=== PATIENT | male | born 1970 | race Hispanic/Latino ===

== ENCOUNTER 2018-11-13 08:55 | Emergency (ER) | payer OTHER, MEDICAID, SELFPAY ==
[2018-11-13 09:06] VITALS: BP 161/103; PULSE 81; RESP 19; TEMP 36.6; O2SAT 100; BMI 25.0
--- NOTE | 2018-11-13 09:35 | DI.RAD.S_ITS ---
PROCEDURE: XR FOREARM RT 2V INDICATIONS: pain, previous surgery TECHNIQUE: 2 views of the forearm were acquired. COMPARISON: [facility], , FOREARM RIGHT, 04/09/2008, 13:41. FINDINGS: Bones: No acute fracture or dislocation is identified involving the osseous structures of the right forearm. No suspicious osseous lesions are present. Postoperative changes are noted related to previous open reduction and internal fixation procedures involving the mid radial and ulnar shafts. Orthopedic plates and screws are evident, which are intact. The fractures are healed. Degenerative changes of the elbow are present. There is slight deformity involving the radial head, which is felt to be degenerative. Soft tissues: Dystrophic calcification within the soft tissues of the left forearm are evident. Otherwise, the overlying soft tissues are unremarkable. IMPRESSION: 1. No acute osseous abnormality of the right forearm. 2. Healed radius and ulna fractures, status post ORIF. Dictated by: Alonso Adams M.D. on 11/13/2018 at 8:50 Approved by: Alonso Adams M.D. on 11/13/2018 at 8:52
--- NOTE | 2018-11-13 09:56 | ED.EXTPRO ---
HPI - Extremity Problem General Chief complaint: Extremity Problem,Nontraumatic Stated complaint: r arm pain Time Seen by Provider: 11/13/18 09:28 Source: patient Mode of arrival: ambulatory Limitations: no limitations History of Present Illness HPI Narrative: patient is a 48-year-old male who presents with right forearm pain. He previously had an open comminuted fracture back in 1989 with surgery. 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 He started noticing pain in his forearm and numbness and tingling in his middle and index finger over the last couple of days. He has been taking Tylenol for without any relief. His he has pain with supination and pronation. Some medial epicondyle pain as well. His denies any injury. Patient is ambidextrous. He states that he probably does use his right his arm and hand more at work. He remembers pain starting while watching TV on Tuesday. MD Complaint: extremity pain Quality: burning Exacerbating factors: range of motion Related Data Previous Rx's Medication Instructions Recorded prednisone 20 mg PO DAILY #5 tab 11/13/18 Allergies Allergy/AdvReac Type Severity Reaction Status Date / Time naproxen Allergy Verified 11/13/18 09:13 Review of Systems Review of Systems ROS Unobtainable: All systems reviewed & are unremarkable except as noted in HPI and below Constitutional Denies chills, Denies fever(s), Denies lethargy and Denies weakness Cardiovascular Denies chest pain, Denies irregular heart rhythm, Denies lightheadedness, Denies palpitations, Denies dyspnea, Denies dyspnea on exertion and Denies orthopnea Respiratory Denies cough, Denies dyspnea, Denies dyspnea on exertion and Denies wheezing Gastrointestinal Gastrointestinal: Denies abdominal pain, Denies change in bowel habits, Denies diarrhea, Denies nausea and Denies vomiting Musculoskeletal Reports as per HPI Integumentary/Breasts Denies pruritus, Denies erythema, Denies rash and Denies wounds Neurologic Denies weakness Endocrine Denies palpitations Allergic/Immunologic Denies wheezing FOR[facility]LY [facility] Medical History Diabetes (Acute) Social History Smoking Status: Former smoker Social History Smoking Status: Former smoker Exam Initial Vital Signs Initial Vital Signs: Vital Signs Temperature 97.8 F 11/13/18 09:06 Pulse Rate 81 11/13/18 09:06 Respiratory Rate 19 11/13/18 09:06 Blood Pressure 161/103 H 11/13/18 09:06 Pulse Oximetry 100 11/13/18 09:06 GENERAL: Well-appearing, well-nourished and in no acute distress. CARDIOVASCULAR: peripheral pulses in tact, cap refill <2 sec RESPIRATORY: No respiratory distress, speaks in full sentences without difficulty EXTREMITIES: Normal range of motion, no clubbing or edema. Neurovascularly intact right upper extremity: Pain medial epicondyle pain with supination and rotation. Scar scarring noted on the right forearm no erythema no swelling no contusion. Able to flex and extend the elbow. Distal radial pulse intact. Telephone Quotation Clerk strength equal bilaterally. NEUROLOGICAL: Cranial nerves II through XII grossly intact. Normal gait and speech. SKIN: Warm, dry, no petechiae, no rashes or lesions. Course Orders Ordered: ED Orders 11/13/18 09:35 XR forearm RT 2V Stat Vital Signs - 8 hr 11/13/18 09:06 Temperature 97.8 F Pulse Rate 81 Respiratory Rate 19 Blood Pressure 161/103 H Pulse Oximetry 100 MDM - Extremity (Nontraumatic) Imaging Data right forearm: Radiologist's impression: PROCEDURE: XR FOREARM RT 2V INDICATIONS: pain, previous surgery TECHNIQUE: 2 views of the forearm were acquired. COMPARISON: [facility], FOREARM RIGHT, 04/09/2008, 13:41. FINDINGS: Bones: No acute fracture or dislocation is identified involving the osseous structures of the right forearm. No suspicious osseous lesions are present. Postoperative changes are noted related to previous open reduction and internal fixation procedures involving the mid radial and ulnar shafts. Orthopedic plates and screws are evident, which are intact. The fractures are healed. Degenerative changes of the elbow are present. There is slight deformity involving the radial head, which is felt to be degenerative. Soft tissues: Dystrophic calcification within the soft tissues of the left forearm are evident. Otherwise, the overlying soft tissues are unremarkable. IMPRESSION: 1. No acute osseous abnormality of the right forearm. 2. Healed radius and ulna fractures, status post ORIF. Dictated by: Alonso Adams M.D. on 11/13/2018 at 8:50 Discharge Plan Departure Patient Disposition: Home Clinical Impression: Medial epicondyle apophysitis of right elbow due to overuse Discharge Date/Time: 11/13/18 10:17 Interventions: ED Discharge Assessment Last Done: 11/13/18 10:16 Instructions: DI for Medial Epicondylitis Activity Restrictions/Additional Instructions: *You have been diagnosed with Right medial epicondylitis *What to do: rest, decreased activity, may wear a wrist splint as needed to help *Continue to take medications as directed prednisone 20 mg once a day for 5 days to help with inflammation--> this will increase her glucose levels any will need to adjust her insulin as as you see fit. Tylenol 650 mg every 4-6 hours if needed for pain *Follow up with your primary care provider in 2-3 days *Return to ER if you should have numbness tingling weakness orany new, worsening or concerning symptoms Prescriptions: New prednisone 20 mg tablet 20 mg PO DAILY Qty: 5 RF: 0
[2018-11-13 10:11] VITALS: BP 152/96; PULSE 75; RESP 18; TEMP 36.7; O2SAT 98
== END 2018-11-13 10:17 | disposition home or self-care (01) ==
PROVIDERS: Emergency Provider Emergency Medicine
DX: M93.921 Osteochondropathy, unspecified, right upper arm (principal)
CPT/HCPCS: 73090; 99282; 99283